=== PATIENT | female | born 1945 | race Caucasian/White ===

== ENCOUNTER 2020-03-04 08:12 | Day surgery (SDC) | payer MEDICARE, MEDICAID ==
[2020-02-27 13:06] LABS: EOSINOPHILS # (AUTO) 0.3 X10'3 (0-0.9); MEAN PLATELET VOLUME 7.4 FL (7.4-10.4); MONOCYTES # (AUTO) 0.5 X10'3 (0-0.9); MONOCYTES % (AUTO) 7.7 % (2-12)
[2020-02-27 13:08] LABS: BASOPHILS # (AUTO) 0.1 X10'3 (0-0.2); BASOPHILS % (AUTO) 1.4 % (0-1); EOSINOPHILS % (AUTO) 3.9 % (0-6); LYMPHOCYTES # (AUTO) 0.7 X10'3 (1.1-4.8); LYMPHOCYTES % (AUTO) 11.1 % (21-51); MEAN CORPUSCULAR HEMOGLOBIN 32.6 PG (27.0-31.0); MEAN CORPUSCULAR HGB CONC 34.6 g/dL (33.0-36.5); MEAN CORPUSCULAR VOLUME 94.4 FL (78-98); NEUTROPHILS # (AUTO) 5.1 X10'3 (1.8-7.7); NEUTROPHILS % (AUTO) 75.9 % (42-75); PRE OP HEMATOCRIT 39.1 % (35.0-45.0); PRE OP HEMOGLOBIN 13.5 g/dL (12.0-16.0); PRE OP PLATELET COUNT 288 X10'3 (140-440); RED BLOOD COUNT 4.15 X10'6 (4.20-5.60); RED CELL DISTRIBUTION WIDTH 15.5 % (11.5-14.5)
[2020-02-27 13:15] LABS: CLARITY,URINE SLIGHTLY CLOUDY (Clear); COLOR,URINE YELLOW (Yellow); GLUCOSE, URINE NEGATIVE (Neg); KETONES,URINE NEGATIVE (Neg); LEUKOCYTE ESTERASE ,URINE SMALL (Neg); NITRITES, URINE NEGATIVE (Neg); OCCULT BLOOD,URINE NEGATIVE (Neg); PROTEIN,URINE NEGATIVE (Neg); UROBILINOGEN,URINE 0.2 E.U/dL (0.2-1.0)
[2020-02-27 13:19] LABS: UA COLLECTION TYPE CLN CATCH MIDSTREAM
[2020-02-27 13:23] LABS: SQUAMOUS EPITHELIAL CELL,UR FEW /LPF (FEW)
[2020-02-27 13:24] LABS: BACTERIA,URINE 3+ /HPF (Neg)
[2020-02-27 13:25] LABS: RBC,URINE 0-2 /HPF (0-2); WBC,URINE 0-4 /HPF (0-4)
[2020-02-27 13:32] LABS: ALBUMIN 3.4 G/DL (3.4-5.0); ALKALINE PHOSPHATASE 88 IU/L (46-116); BLOOD UREA NITROGEN 15 MG/DL (7-18); BUN/CREATININE RATIO 20.3 (6.6-38.0); CHLORIDE 100 MMOL/L (99-107); CREATININE 0.74 MG/DL (0.40-0.90); PRE OP ALT 24 U/L (30-65); PRE OP ANION GAP 7 (8-16); PRE OP AST 18 U/L (10-37); PRE OP BILIRUB, TOTAL 0.4 MG/DL (0.0-1.0); PRE OP GLUCOSE 91 MG/DL (70-104); PRE OP POTASSIUM 4.3 MMOL/L (3.4-5.1); PRE OP SODIUM 136 MMOL/L (135-145); TOTAL CARBON DIOXIDE 28.8 MMOL/L (24-32); TOTAL PROTEIN 6.9 G/DL (6.4-8.2); eGFR 77 ML/MIN
[2020-03-04] VITALS (17 sets, daily range): BP systolic 111–139; BP diastolic 59–78
[~2020-03-04] VITALS: Ht 157.5 cm; Wt 75.0 kg
[~2020-03-04 08:12] MED LIST: ALEN70TA80 PO; ASCO-134 PO; ASPI-1265 PO; BUPIVAcaine/PF 2.5 mg/ml (0.25%) 30ml vial ONE; CALC1CAP22 PO; CARV3.122 PO; CHOL20004 PO; DEXL60CA3 PO; DOCUMENT DATE & TIME OF BETA-BLOCKER PO ONE; DULO20CA18 PO; FOLI0.4T14 PO; IPRA4AER INH; LEVO137T19 PO; METH2.5T55 PO; MONT10TA97 PO; MULT-1085 PO; ceFAZolin 2gm in dextrose, iso 50 ML IV ONE; famotidine 20mg tablet PO ONE; ringers solution, lacted 1,000 ML IV SCH
[2020-03-04] MEDS ORDERED: sevoflurane 250ml liquid IH ONE (11:09)
[2020-03-04] MEDS ORDERED: propofol inj 20 ML IV ONE (11:11)
[2020-03-04] MEDS ORDERED: midazolam 2 mg/2 ml injection ONE (11:11)
[2020-03-04] MEDS ORDERED: fentaNYL/PF 50MCG/1 ML 2ML syringe ONE (11:11)
[2020-03-04] MEDS ORDERED: rocuronium 10mg/ml inj IV ONE (11:31)
[2020-03-04] MEDS ORDERED: dexamethasone sod phosphate 4mg/ml inj. ONE (11:31)
[2020-03-04] MEDS ORDERED: proCHLORperazine 10 MG/2 ml inj IV PRN (12:35)
[2020-03-04] MEDS ORDERED: morphine 2 MG/ML inj. syringe IV PRN (12:35)
[2020-03-04] MEDS ORDERED: morphine 4 MG/ML inj SYRINge IV PRN (12:35)
[2020-03-04] MEDS ORDERED: ondansetron/PF 4mg/2ml inj IV PRN (12:35)
[2020-03-04] MEDS ORDERED: meperidine/PF 25mg/ml syringe IV PRN ×3 (12:35)
[2020-03-04] MEDS ORDERED: ringers solution, lacted 1,000 ML IV SCH (12:35)
[2020-03-04] MEDS ORDERED: ondansetron/PF 4mg/2ml inj ONE (14:14)
[2020-03-04] MEDS ORDERED: neostigmine methylsulfate 1 MG/ML 10ml vial ONE (14:14)
[2020-03-04] MEDS ORDERED: glycopyrrolate 0.2mg/ml inj ONE (14:14)
[2020-03-04] MEDS ORDERED: acetaminophen 1,000mg/100ml IV 100 ML IV ONE (14:26)
--- NOTE | 2020-03-04 14:34 | NUR ---
Received from OR via [facility], accompanied by Anesthesiologist Dr. Silver and report given by Anesthesiolgist. Patient has 4 band-aids to medial and lateral aspect of abdomen. 20gauge to left forearm with LR running at 20ml. Patient on oxygen via mask at 10L. VSS, with some sinus tachycardia. SCD's present. Belongings include top and bottom dentures. Will continue to monitor. Addendum: 03/04/20 at 1445 by Tita Carlson RN Amended: Links added.
[2020-03-04] MEDS ORDERED: ipratropium/albuterol 3ml nebule NEB PRN (15:55)
[2020-03-04] MEDS ORDERED: non-formulary drug (Alendronate Sodium 1 TAB) PO SCH (15:55)
[2020-03-04] MEDS ORDERED: METH2.5T PO (16:13)
[2020-03-04] MEDS ORDERED: HYDROcodone/acetaminophen 5mg/325mg tablet PO ONE (18:05)
[2020-03-04] MEDS ORDERED: ibuprofen tablet 400 MG TABLET PO ONE (18:10)
--- NOTE | 2020-03-04 18:44 | NUR ---
Patient discharged home with daughter, Jacqui. Patient states she has all her belongings. Medicated with ibprofen prior to departure. Discharge paperwork placed in patient belonging bag. Patient states no concerns.
[2020-03-04] MEDS ORDERED: carVEDilol 3.125mg tablet PO SCH (20:00)
[2020-03-04] MEDS ORDERED: ascorbic acid 500mg tablet PO SCH (20:00)
[2020-03-04] MEDS ORDERED: calcium carbonate/vitamin D3 tablet PO SCH (20:00)
[2020-03-04] MEDS ORDERED: duloxetine 20mg capsule.DR PO SCH (20:00)
[2020-03-05] MEDS ORDERED: multivitamins, therapeutics tablet PO SCH (08:00)
[2020-03-05] MEDS ORDERED: folic acid 1mg tablet PO SCH (08:00)
[2020-03-05] MEDS ORDERED: levoTHYROXINE 112mcg tablet PO SCH (08:00)
[2020-03-05] MEDS ORDERED: montelukast 10mg tablet PO SCH (08:00)
[2020-03-05] MEDS ORDERED: levoTHYROXINE 25mcg tablet PO SCH (08:00)
[2020-03-05] MEDS ORDERED: vitamin D (cholecalciferol) 1,000 unit tablet PO SCH (08:00)
[2020-03-05] MEDS ORDERED: pantoprazole 40mg Tablet.DR PO SCH (08:00)
[2020-03-05] MEDS ORDERED: aspirin 81mg tab.chew PO SCH (08:00)
== END 2020-03-04 18:44 | disposition home or self-care (01) ==
LOC: PAS 08:12
PROVIDERS: ATTEND Surgery
DX: K43.6 Other and unspecified ventral hernia with obstruction, without gangrene (principal); J44.9 Chronic obstructive pulmonary disease, unspecified; F17.210 Nicotine dependence, cigarettes, uncomplicated; M06.9 Rheumatoid arthritis, unspecified; G47.33 Obstructive sleep apnea (adult) (pediatric); K21.9 Gastro-esophageal reflux disease without esophagitis; F32.9 Major depressive disorder, single episode, unspecified; G89.29 Other chronic pain; M10.9 Gout, unspecified; I10 Essential (primary) hypertension; Z88.5 Allergy status to narcotic agent; Z88.8 Allergy status to other drugs, medicaments and biological substances; Z96.653 Presence of artificial knee joint, bilateral; Z90.710 Acquired absence of both cervix and uterus; Z98.890 Other specified postprocedural states; Z79.899 Other long term (current) drug therapy; Z20.828 Contact with and (suspected) exposure to other viral communicable diseases
CPT/HCPCS: 36415; 49653; 80053; 81001; 82948; 84443; 85025; 87077; 87081; 87088; 87186; 87635; 93005; C1713; C1758; C1781; J0131; J1100; J2250; J2405; J2704; J2710; J3010; J3490; J7120; A4215; A4618